=== PATIENT | female | born 1945 | race Caucasian/White ===

== ENCOUNTER 2016-12-16 20:18 | Observation (INO) | payer OTHER ==
[~2016-12-16] VITALS: Ht 162.6 cm; Wt 48.2 kg
[~2016-12-16 20:18] MED LIST: ASCA500 PO; BIOT1CAP8 PO; CHOL100010 PO; COEN150C PO; CYAN500T PO; MAGNESIUM PEG; MULT1CAP3 PO; OMEG10007 PO
[2016-12-16] MEDS ORDERED: GI COCKTAIL PO STA (20:46)
[2016-12-16] MEDS ORDERED: SUCRALFATE 1 GM TAB PO STA (20:46)
[2016-12-16] MEDS ORDERED: FAMOTIDINE 20 MG TAB PO STA (20:46)
--- NOTE | 2016-12-16 20:48 | EMERGENCY ROOM VISIT NOTE ---
History Report prepared by Farhad: Jihan Nelson Under the Supervision of: Dr. Sathya Gonzalez M.D. First contact with patient: 20:32 Chief Complaint: CARDIAC ASSESSMENT Stated Complaint: INDIGESTION,NECK ACHE,FEELING STRANGE History of Present Illness The patient is a 71 year old female who presents to the Emergency Room with complaints of intermittent indigestion since yesterday. She notes that she has noticed a burning sensation in her throat. Today, the burning extended further down towards her chest which concerned her. It does improve with laying down. 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 She denies any specific chest pain. She also complains of some achiness in the left side of her neck and occasional aches in her right arm. She has never had similar symptoms in the past. Currently, she does not have any pain. 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 She typically takes 1 baby aspirin every 2-3 days. The patient has a history of 3 separate diagnosed episodes of a-fib but is usually in normal sinus rhythm. She follows up with Dr. Sahu of cardiology. She does not have a history of smoking. There is a family history of heart disease. Source of History: patient Onset: yesterday Position: other (throat/upper chest) Quality: burning Timing: intermittent Modifying Factors (Worsening): exertion Modifying Factors (Relieving): other (laying down) Associated Symptoms: + neck pain (left sided aches) Note: Other symptoms: right arm aches Review of Systems See HPI for pertinent positives & negatives. A total of 10 systems reviewed and were otherwise negative. Past Medical & Surgical Medical Problems: (1) A-fib Family History Heart disease Social History Smoking Status: Never Smoker Marital Status: Housing Status: lives with significant other Current/Historical Medications Scheduled Ascorbic Acid (Vitamin C), 500 MG PO DAILY Biotin (Biotin), 1 MG PO DAILY Cholecalciferol (Vitamin D 1000 Unit), 1,000 INTER.UNIT PO DAILY Cyanocobalamin (Vitamin B-12), 500 MCG PO DAILY Fish Oil (Carlos-3), 1 CAP PO DAILY Magnesium Oxide (Magnesium), 250 MG PO QPM Multiple Vitamins W/ Minerals (Womens Multi), 1 TAB PO DAILY Allergies Coded Allergies: [place] (Verified Allergy, Unknown, 03/29/16) Sulfa Antibiotics (Verified Allergy, Unknown, "SULFA DRUGS": UNKNOWN, 03/29) Doxycycline (Unverified Adverse Reaction, Unknown, GI ISSUES/THROAT SWELLING, 03/29/16) Physical Exam Vital Signs Date Time Temp Pulse Resp B/P Pulse Ox O2 Delivery O2 Flow Rate FiO2 12/16/16 21:37 70 16 123/57 97 12/16/16 21:36 71 12/16/16 20:59 97 Room Air 12/16/16 20:59 Room Air 12/16/16 20:21 36.9 89 20 180/97 96 Room Air Physical Exam GENERAL: Patient is a healthy-appearing well-nourished 71 year old female HEAD: Normocephalic atraumatic EYES: Ocular movements intact pupils equal and react to light OROPHARYNX mucous membranes are moist no exudates present no erythema or edema present NECK: Supple no nuchal rigidity CHEST: Good equal expansion LUNGS: Clear and equal to auscultation CARDIAC: Normal S1 and S2 ABDOMEN: Soft nontender no guarding BACK: No CVA tenderness EXTREMITIES: No pain upon palpation normal muscle strength in all groups no clubbing cyanosis or edema NEURO: Patient is following commands is answering questions appropriately. Alert and oriented x3 Cranial Nerves 2-12 grossly intact Medical Decision & Procedures ER Provider Diagnostic Interpretation: X-ray results as stated below per my interpretation and radiologist interpretation. SINGLE VIEW CHEST CLINICAL HISTORY: Atypical chest pain. FINDINGS: An AP, portable, upright chest radiograph is compared to study dated 11/11/2009 and correlated with chest CT dated 07/17/2006. The examination is degraded by portable technique and patient rotation. The cardiomediastinal silhouette is unremarkable. Chronic interstitial thickening is similar to previous. No airspace consolidation, pleural effusion, or pneumothorax is seen. The skeletal structures are osteopenic. There is moderate S-shaped thoracolumbar scoliosis. IMPRESSION: No acute cardiopulmonary abnormality. Electronically signed by: Gary Cabral M.D. 12/16/2016 9:10 PM Dictated Date/Time: 12/16/2016 9:09 PM Laboratory Results 12/16/16 20:34 Red Blood Count 4.63, Mean Corpuscular Volume 87.3, Mean Corpuscular Hemoglobin 29.6, Mean Corpuscular Hemoglobin Concent 33.9, Mean Platelet Volume 9.6, Neutrophils (%) (Auto) 47.7, Lymphocytes (%) (Auto) 38.5, Monocytes (%) (Auto) 11.8, Eosinophils (%) (Auto) 1.5, Basophils (%) (Auto) 0.4, Neutrophils # (Auto ) 3.27, Lymphocytes # (Auto) 2.64, Monocytes # (Auto) 0.81, Eosinophils # (Auto ) 0.10, Basophils # (Auto) 0.03 12/16/16 20:34 Test 12/16/16 20:34 White Blood Count 6.86 K/uL (4.8-10.8) Red Blood Count 4.63 M/uL (4.2-5.4) Hemoglobin 13.7 g/dL (12.0-16.0) Hematocrit 40.4 % (37-47) Mean Corpuscular Volume 87.3 fL (80-100) Mean Corpuscular Hemoglobin 29.6 pg (25-34) Mean Corpuscular Hemoglobin Concent 33.9 g/dl (32-36) Platelet Count 252 K/uL (130-400) Mean Platelet Volume 9.6 fL (7.4-10.4) Neutrophils (%) (Auto) 47.7 % Lymphocytes (%) (Auto) 38.5 % Monocytes (%) (Auto) 11.8 % Eosinophils (%) (Auto) 1.5 % Basophils (%) (Auto) 0.4 % Neutrophils # (Auto) 3.27 K/uL (1.4-6.5) Lymphocytes # (Auto) 2.64 K/uL (1.2-3.4) Monocytes # (Auto) 0.81 K/uL (0.11-0.59) Eosinophils # (Auto) 0.10 K/uL (0-0.5) Basophils # (Auto) 0.03 K/uL (0-0.2) RDW Standard Deviation 45.1 fL (36.4-46.3) RDW Coefficient of Variation 14.1 % (11.5-14.5) Immature Granulocyte % (Auto) 0.1 % Immature Granulocyte # (Auto) 0.01 K/uL (0.00-0.02) Anion Gap 9.0 mmol/L (3-11) Est Creatinine Clear Calc Drug Dose 53.8 ml/min Estimated GFR () 93.6 Estimated GFR (Non- 80.8 BUN/Creatinine Ratio 21.2 (10-20) Calcium Level 9.3 mg/dl (8.5-10.1) Total Bilirubin 0.3 mg/dl (0.2-1) Direct Bilirubin < 0.1 mg/dl (0-0.2) Aspartate Amino Transf (AST/SGOT) 31 U/L (15-37) Alanine Aminotransferase (ALT/SGPT) 40 U/L (12-78) Alkaline Phosphatase 60 U/L (45-117) Total Creatine Kinase 92 U/L (26-192) Creatine Kinase MB 1.6 ng/ml (0.5-3.6) Creatine Kinase MB Ratio 1.7 (0-3.0) Troponin I < 0.015 ng/ml (0-0.045) Total Protein 7.2 gm/dl (6.4-8.2) Albumin 3.7 gm/dl (3.4-5.0) Lipase 289 U/L (73-393) Labs reviewed by ED physician. Medications Administered Medications (Trade) Dose Ordered Sig/Vidya Route Start Time Stop Time Status Last Admin Dose Admin Famotidine (Pepcid Tab) 20 mg NOW STAT PO 12/16/16 20:46 12/16/16 20:48 DC 12/16/16 21:13 20 MG Sucralfate (Carafate Tab) 1 gm NOW STAT PO 12/16/16 20:46 12/16/16 20:48 DC 12/16/16 21:13 1 GM Al Hydroxide/Mg Hydroxide (Maalox Susp) 30 ml STK-MED ONCE .ROUTE 12/16/16 21:09 12/16/16 21:11 DC 12/16/16 21:14 12 ML Lidocaine HCl (Viscous Lidocaine 2% Soln) 20 ml STK-MED ONCE .ROUTE 12/16/16 21:09 12/16/16 21:11 DC 12/16/16 21:13 12 ML ECG Indication: chest pain Rate (beats per minute): 85 Findings: no ectopy, other (slight ST depression in the inferior leads) Comparison ECG Date: no prior available ED Course 2036: Past medical records reviewed. The patient was evaluated in room B9. A complete history and physical examination was performed. 2045: Ordered Sucralfate 1 gm PO, Pepcid Tab 20 mg PO, GI Cocktail 24 ml PO. 2127: Upon reexamination the patient is resting comfortably. I discussed results and treatment plan with the patient. She verbalizes agreement and understanding. I spoke with Dr. Holloway from the [facility]. The patient will be evaluated for further management. Medical Decision Differential diagnosis: Etiologies such as cardiac ischemia, aortic dissection, pulmonary embolism, pneumonia, pneumothorax, musculoskeletal, infections, pericarditis, myocarditis , esophageal rupture, gastrointestinal, as well as others were entertained. This is a 71-year-old female who presents emergency department with exertional chest pain that has been ongoing for the past 3 days. The patient has a history of atrial fibrillation. The patient has slight depressions on her EKG and I felt based on this as well as her story that she should be admitted to the hospital. She took Pepcid Carafate and a GI cocktail with no change in her symptoms. I did discuss the case with the hospitalist service. The patient's potassium was repleted in the emergency department. Patient was in agreement with the treatment plan. Consults Time Called: [phone] Consulting Physician: Dr. Holloway - [facility] Returned Call: [phone] The patient will be evaluated for further management. Impression Primary Impression: Chest pain Scribe Attestation The scribe's documentation has been prepared under my direction and personally reviewed by me in its entirety. I confirm that the note above accurately reflects all work, treatment, procedures, and medical decision making performed by me. Departure Information Dispostion Being Evaluated By Hospitalist Referrals Mohan Gandara M.D. (PCP) Patient Instructions My [facility] Problem Qualifiers Primary Impression: Chest pain Chest pain type: precordial pain Qualified Codes: R07.2 - Precordial pain
[2016-12-16 20:55] LABS: BASO % 0.4 %; BASO ABS # 0.03 K/uL (0-0.2); COMPLETE YES; EOS % 1.5 %; HEMATOCRIT 40.4 % (37-47); IG% 0.1 %; LYMPH % 38.5 %; LYMPH ABS # 2.64 K/uL (1.2-3.4); MEAN CELL VOLUME 87.3 fL (80-100); MEAN CORPUSCULAR HEMOGLOBIN 29.6 pg (25-34); MEAN CORPUSCULAR HGB CONC 33.9 g/dl (32-36); MEAN PLATELET VOLUME 9.6 fL (7.4-10.4); MONO % 11.8 %; NEUT % 47.7 %; PLATELET COUNT 252 K/uL (130-400); RED BLOOD COUNT 4.63 M/uL (4.2-5.4); WHITE BLOOD COUNT 6.86 K/uL (4.8-10.8)
[2016-12-16] MEDS ORDERED: CHOL100027 PO (21:06)
[2016-12-16] MEDS ORDERED: MAGN250T22 PO (21:06)
[2016-12-16 21:09] LABS: ALT/SGPT 40 U/L (12-78); BLOOD UREA NITROGEN 16 mg/dl (7-18); BUN/CREATININE RATIO 21.2 (10-20); CALCIUM 9.3 mg/dl (8.5-10.1); CARBON DIOXIDE 29 mmol/L (21-32); CHLORIDE 104 mmol/L (98-107); CREATININE 0.75 mg/dl (0.60-1.20); GLUCOSE 104 mg/dl (70-99); POTASSIUM 3.4 mmol/L (3.5-5.1); SODIUM 142 mmol/L (136-145)
[2016-12-16] MEDS ORDERED: ALUMINUM/MAGNESIUM SUSP 30 ML UDC ONE (21:09)
[2016-12-16] MEDS ORDERED: LIDOCAINE HCL 2% VISC SOLN 20 ML UDC ONE (21:09)
--- NOTE | 2016-12-16 21:11 | DIAGNOSTIC IMAGING REPORT ---
SINGLE VIEW CHEST CLINICAL HISTORY: Atypical chest pain. FINDINGS: An AP, portable, upright chest radiograph is compared to study dated 11/11/2009 and correlated with chest CT dated 07/17/2006. The examination is degraded by portable technique and patient rotation. The cardiomediastinal silhouette is unremarkable. Chronic interstitial thickening is similar to previous. No airspace consolidation, pleural effusion, or pneumothorax is seen. The skeletal structures are osteopenic. There is moderate S-shaped thoracolumbar scoliosis. IMPRESSION: No acute cardiopulmonary abnormality. Electronically signed by: Gary Cabral M.D. 12/16/2016 9:10 PM Dictated Date/Time: 12/16/2016 9:09 PM
[2016-12-16 21:14] LABS: ALKALINE PHOSPHATASE 60 U/L (45-117); AST/SGOT 31 U/L (15-37); CKMB/CK RATIO 1.7 (0-3.0)
[2016-12-16] MEDS ORDERED: POTASSIUM CHLORIDE 20 MEQ/15 ML UDC PO STA (21:37)
[2016-12-16] MEDS ORDERED: ACETAMINOPHEN 325 MG TAB PO PRN (22:00)
[2016-12-16] MEDS ORDERED: ALUMINUM/MAGNESIUM/SIMETH (MAALOX MAX) 30 ML UDC PO PRN (22:00)
[2016-12-16] MEDS ORDERED: IV FLUIDS COMPLETED PRN (22:00)
[2016-12-16] MEDS ORDERED: NITROGLYCERIN 0.4 MG SL PER TAB CHARGE SL PRN (22:00)
[2016-12-16] MEDS ORDERED: MoRPHine SULFATE 2 MG/ML CARP IV PRN (22:00)
[2016-12-16] MEDS ORDERED: ONDANSETRON INJ 2 MG/ML 2 ML VIAL IV PRN (22:00)
[2016-12-16] MEDS ORDERED: MAGNESIUM HYDROXIDE SUSP 30 ML UDC PO PRN (22:00)
[2016-12-16 22:25] VITALS: BP 165/74; PULSE 84; TEMP 36.8; Ht 162.6 cm; Wt 48.2 kg
[2016-12-16] MEDS: NSS + 20MEQ KCL 1000ML 1,000 ML IV SCH (23:10)
[2016-12-16 23:47] VITALS: BP 116/68; PULSE 68; TEMP 36.4; O2SAT 93
[2016-12-17 00:01] VITALS: O2SAT 93
--- NOTE | 2016-12-17 03:21 | History and Physical ---
History & Physical Date & Time of Service: Dec 17, 2016 at 03:12 Chief Complaint: Chest Pain, Hypokalemia Primary Care Physician: Mohan Ganadra M.D. History of Present Illness Source: patient This is a 71 yo f that is presenting to us with indigestion like chest discomfort which had been intermittent since yesterday. It was not described as a pain but as indigestion and a 2/10. No known agg/ alleviating factors. She does note that for a short period of time she had left neck pain and was concerned so she came to the ED. The pain has since resolved. She denies any N&V , SOB, cough, syncope or dizziness with the pain. She has never had indigestion before. She states that she works out on a daily basis and tries to keep fit and never has chest pain with exercises. She does have a father who had an PR but her mother lived until 93 and was healthy. She has no PMHX aside from PAF which she follows with Dr Sahu. She is not on a blood thinner for this only ASA. Past Medical/Surgical History Medical Problems: (1) A-fib Status: Chronic Family History Heart disease Social History Smoking Status: Never Smoker Smokeless Tobacco Use: No Alcohol Use: none Drug Use: none Marital Status: Housing status: lives with significant other Occupational Status: retired Multi-Drug Resistant Organisms History of MDRO: No Allergies Coded Allergies: [place] (Verified Allergy, Unknown, 03/29/16) Sulfa Antibiotics (Verified Allergy, Unknown, "SULFA DRUGS": UNKNOWN, 03/29) Doxycycline (Unverified Adverse Reaction, Unknown, GI ISSUES/THROAT SWELLING, 03/29/16) Home Medications Scheduled Ascorbic Acid (Vitamin C), 500 MG PO DAILY Biotin (Biotin), 1 MG PO DAILY Cholecalciferol (Vitamin D 1000 Unit), 1,000 INTER.UNIT PO DAILY Cyanocobalamin (Vitamin B-12), 500 MCG PO DAILY Fish Oil ([place]-3), 1 CAP PO DAILY Magnesium Oxide (Magnesium), 250 MG PO QPM Multiple Vitamins W/ Minerals (Womens Multi), 1 TAB PO DAILY Review of Systems Constitutional: No fever Eyes: No worsening of vision ENT: No hearing loss Respiratory: No cough, No dyspnea at rest, No dyspnea on exertion, No shortness of breath, No sputum, No wheezing Cardiovascular: No chest pain Abdomen: No constipation, No diarrhea, No nausea, No pain, No vomiting Musculoskeletal: No joint pain, No muscle pain Neurologic: No balance problems, No numbness/tingling, No weakness Psychiatric: No anxiety, No depression symptoms Endocrine: No fatigue Integumentary: No rash Physical Exam Vital Signs Date Time Temp Pulse Resp B/P Pulse Ox O2 Delivery O2 Flow Rate FiO2 12/17/16 00:01 93 Room Air 12/16/16 23:47 36.4 68 18 116/68 93 Room Air 12/16/16 22:29 64 16 123/74 99 12/16/16 22:25 36.8 84 18 165/74 12/16/16 21:37 70 16 123/57 97 12/16/16 21:36 71 12/16/16 20:59 97 Room Air 12/16/16 20:59 Room Air 12/16/16 20:21 36.9 89 20 180/97 96 Room Air General Appearance: WD/WN, no apparent distress, + thin Head: normocephalic, atraumatic Eyes: normal inspection ENT: normal ENT inspection Neck: supple Respiratory/Chest: lungs clear, normal breath sounds, no respiratory distress, no accessory muscle use Cardiovascular: regular rate, rhythm, no murmur Abdomen/GI: normal bowel sounds, non tender, soft Back: normal inspection Extremities/Musculoskelatal: no calf tenderness, no pedal edema, normal range of motion Neurologic/Psych: no motor/sensory deficits, alert, oriented x 3 Skin: normal color, warm/dry, no rash Lymphatic: no adenopathy Diagnostics Laboratory Results Results Past 24 Hours Test 12/16/16 20:34 Range/Units White Blood Count 6.86 4.8-10.8 K/uL Red Blood Count 4.63 4.2-5.4 M/uL Hemoglobin 13.7 12.0-16.0 g/dL Hematocrit 40.4 37-47 % Mean Corpuscular Volume 87.3 80-100 fL Mean Corpuscular Hemoglobin 29.6 25-34 pg Mean Corpuscular Hemoglobin Concent 33.9 32-36 g/dl Platelet Count 252 130-400 K/uL Mean Platelet Volume 9.6 7.4-10.4 fL Neutrophils (%) (Auto) 47.7 % Lymphocytes (%) (Auto) 38.5 % Monocytes (%) (Auto) 11.8 % Eosinophils (%) (Auto) 1.5 % Basophils (%) (Auto) 0.4 % Neutrophils # (Auto) 3.27 1.4-6.5 K/uL Lymphocytes # (Auto) 2.64 1.2-3.4 K/uL Monocytes # (Auto) 0.81 0.11-0.59 K/uL Eosinophils # (Auto) 0.10 0-0.5 K/uL Basophils # (Auto) 0.03 0-0.2 K/uL RDW Standard Deviation 45.1 36.4-46.3 fL RDW Coefficient of Variation 14.1 11.5-14.5 % Immature Granulocyte % (Auto) 0.1 % Immature Granulocyte # (Auto) 0.01 0.00-0.02 K/uL Sodium Level 142 136-145 mmol/L Potassium Level 3.4 3.5-5.1 mmol/L Chloride Level 104 98-107 mmol/L Carbon Dioxide Level 29 21-32 mmol/L Anion Gap 9.0 3-11 mmol/L Blood Urea Nitrogen 16 7-18 mg/dl Creatinine 0.75 0.60-1.20 mg/dl Est Creatinine Clear Calc Drug Dose 53.8 ml/min Estimated GFR () 93.6 Estimated GFR (Non- 80.8 BUN/Creatinine Ratio 21.2 10-20 Random Glucose 104 70-99 mg/dl Calcium Level 9.3 8.5-10.1 mg/dl Total Bilirubin 0.3 0.2-1 mg/dl Direct Bilirubin < 0.1 0-0.2 mg/dl Aspartate Amino Transf (AST/SGOT) 31 15-37 U/L Alanine Aminotransferase (ALT/SGPT) 40 12-78 U/L Alkaline Phosphatase 60 45-117 U/L Total Creatine Kinase 92 26-192 U/L Creatine Kinase MB 1.6 0.5-3.6 ng/ml Creatine Kinase MB Ratio 1.7 0-3.0 Troponin I < 0.015 0-0.045 ng/ml Total Protein 7.2 6.4-8.2 gm/dl Albumin 3.7 3.4-5.0 gm/dl Lipase 289 73-393 U/L Diagnostic Radiology SINGLE VIEW CHEST CLINICAL HISTORY: Atypical chest pain. FINDINGS: An AP, portable, upright chest radiograph is compared to study dated 11/11/2009 and correlated with chest CT dated 07/17/2006. The examination is degraded by portable technique and patient rotation. The cardiomediastinal silhouette is unremarkable. Chronic interstitial thickening is similar to previous. No airspace consolidation, pleural effusion, or pneumothorax is seen. The skeletal structures are osteopenic. There is moderate S-shaped thoracolumbar scoliosis. IMPRESSION: No acute cardiopulmonary abnormality. EKG NSR, non specific T wave changes but quality is poor Impression Assessment and Plan This is a 80 yo f here for chest pain rule out without any significant PMHx Chest pain NYD - tele admission - troponin serial - EKG in am Stress echo - npoe after midnight PAF - not on any medications currently - will monitor Hypokalemia - nss with 20 kcl - recheck bmp in am DVT Prophylaxis - scd FULL CODE Level of Care Telemetry Advanced Directives Existing Living Will: No Existing Power of Ammunition And Explosives Handler: No Resuscitation Status FULL RESUSCITATION VTE Prophylaxis VTE Risk Assessment Done? Y/N: Yes Risk Level: Moderate Given or contraindicated: SCD's Social Service Consult None Apply Note Total Time: Critical Care 30 - 74 minutes Additional Copies To Mohan Gandara M.D. Assessment and Plan Attending Addendum: I have physically seen and examined this patient, have directed their medical care, have supervised the medical residents activities, and agree with the H&P as noted above, with the following changes: NONE The patient is awake, well-developed and adequately nourished, alert and oriented 3, normocephalic and atraumatic, lying in bed and in no acute distress. HEENT--PERRL, EOMI, mucous membranes and oropharynx dry. Neck--supple, no JVD or bruits, thyroid normal, trachea midline, no adenopathy. Heart--normal S1 and S2, no extra beats, no murmurs, rubs or gallops. Lungs--clear bilaterally with good air movement, no respiratory distress, no accessory muscle use. Abdomen--normal bowel sounds and soft, nontender and nondistended, no hernias or masses, no organomegaly. Extremities--no cyanosis, clubbing or edema. There are good distal pulses b/l. Dermatologic--normal skin turgor, normal color, warm and dry, no abnormal lymph nodes, no rash. Neurologic--cranial nerves II through XII grossly intact, motor and sensory examination normal. Rheumatologic--normal range of motion, nontender, muscles and joints. Psychiatric--normal affect. Assessment and Plan: Precordial Chest Pain/history of A. fib--patient will be admitted to the telemetry unit for serial cardiac enzymes, cardiac rhythm monitoring and a 2-D echocardiogram with Dopplers. Place on aspirin 81 mg by mouth daily. Nutraceutical use--continue vitamin C, biotin, vitamin D, vitamin B12, fish oil , magnesium, and women's multivitamin.
[2016-12-17 03:54] VITALS: BP 99/56; PULSE 61; TEMP 36.3; O2SAT 97
[2016-12-17 04:00] VITALS: O2SAT 97
[2016-12-17 06:20] LABS: HEMATOCRIT 36.9 % (37-47); MEAN CELL VOLUME 87.4 fL (80-100); MEAN CORPUSCULAR HEMOGLOBIN 28.7 pg (25-34); MEAN CORPUSCULAR HGB CONC 32.8 g/dl (32-36); MEAN PLATELET VOLUME 9.8 fL (7.4-10.4); PLATELET COUNT 207 K/uL (130-400); RED BLOOD COUNT 4.22 M/uL (4.2-5.4); WHITE BLOOD COUNT 3.99 K/uL (4.8-10.8)
[2016-12-17 06:50] LABS: BLOOD UREA NITROGEN 12 mg/dl (7-18); BUN/CREATININE RATIO 19.5 (10-20); CALCIUM 8.5 mg/dl (8.5-10.1); CARBON DIOXIDE 29 mmol/L (21-32); CHLORIDE 112 mmol/L (98-107); GLUCOSE 86 mg/dl (70-99); MAGNESIUM 2.1 mg/dl (1.8-2.4); POTASSIUM 4.3 mmol/L (3.5-5.1); SODIUM 145 mmol/L (136-145)
[2016-12-17 07:20] VITALS: BP 115/67; PULSE 62; TEMP 36.8; O2SAT 96
[2016-12-17] MEDS ORDERED: NON-FORMULARY MEDICATION (Biotin 1 MG) PO SCH (09:00)
[2016-12-17] MEDS ORDERED: OMEGA-3 (PURIFIED FISH OIL) 1 GM CAP PO SCH (09:00)
[2016-12-17] MEDS ORDERED: CYANOCOBALAMIN 500 MCG TAB (VIT B-12) PO SCH (09:00)
[2016-12-17] MEDS ORDERED: CEROVITE ADV FORMULA TAB PO SCH (09:00)
[2016-12-17] MEDS ORDERED: ASCORBIC ACID 500 MG TAB PO SCH (09:00)
[2016-12-17] MEDS ORDERED: CHOLECALCIFEROL 1000 INTER.UNIT TAB PO SCH (09:00)
[2016-12-17] MEDS: NSS + 20MEQ KCL 1000ML 1,000 ML IV SCH (10:50)
[2016-12-17 13:00] VITALS: BP 119/70; PULSE 60; TEMP 36.5; O2SAT 98
--- NOTE | 2016-12-17 14:13 | Discharge Instructions ---
Discharge Instructions Admission Reason for Admission: Chest Pain, Hypokalemia Discharge Discharge Diagnosis / Problem: Chest pain (non-cardiac), hypokalemia (resolved) Discharge Goals Goal(s): Improve function, Prevent Disease Progression Activity Recommendations Activity Limitations: resume your previous activity Lifting Limitations: none Exercise/Sports Limitations: none May Resume Sexual Activity: when tolerated Shower/Bathe: no limitations Driving or Machine Use: no limitations . Instructions / Follow-Up Instructions / Follow-Up Medications: no changes FOLLOW UP - if you continue to have this issue, you can schedule an appointment with Dr. Gandara, otherwise, no need for follow up Current Hospital Diet Patient's current hospital diet: AHA Diet (Heart Healthy) Discharge Diet Recommended Diet: AHA Diet (Heart Healthy) Procedures Procedures Performed: Exercise stress echocardiogram: normal Pending Studies Studies pending at discharge: no Laboratory Results Last Resulted CBC 12/17/16 06:01 Last Resulted BMP 12/17/16 06:01 Medical Emergencies . Who to Call and When: Medical Emergencies: If at any time you feel your situation is an emergency, please call 911 immediately. . Non-Emergent Contact Non-Emergency issues call your: Primary Care Provider Call Non-Emergent contact if: you have any medication questions . . "Provider Documentation" section prepared by Danny Lanza. VTE Core Measure Inpt VTE Proph given/why not?: SCD's [place] Drug Monitoring Program Search Results: no issues identified
[2016-12-17 14:19] VITALS: BP 119/70; PULSE 60; TEMP 36.5; O2SAT 98
--- NOTE | 2016-12-17 14:30 | EXERCISE STRESS ECHO ---
*NOTICE TO RECEIVING REPUBLICAN AGENCY This information is strictly Confidential and protected under [place] law. [place] law prohibits you from making any further disclosure of this information unless further disclosure is expressly permitted by the written consent of the person to whom it pertains or is authorized by law. A general authorization for the release of medical or other information is not sufficient for this purpose. Hospital accepts no responsibility if the information is made available to any other person, INCLUDING THE PATIENT. Interpretation Summary * Name: ISRAEL VELARDE Study Date: 12/17/2016 11:23 AM BP: 129/74 mmHg * Patient Location: .2T\S\S241\S\1 HR: 71 * : 1945 (M/d/yyyy) Gender: Female Height: 64 in * Age: 71 yrs Ethnicity: CA Weight: 107 lb * Ordering Physician: Wilma Campos * Performed By: Ibeth Stallings RDCS * * Reason For Study: Chest pain * BSA: 1.5 m2 * -- Conclusions -- * Normal stress echocardiogram at 7.4 METS and a peak heart rate of 94% maximum predicted. * No exercise induced chest pain. * No ECG changes * Baseline echocardiogram notes normal left ventricular systolic function and mild tricuspid regurgitation. Procedure Details * ECHOEX, CPT #[id number] * ECHO DOPPLER, CPT #[id number] * ECHO COLOR FLOW, CPT #[id number] Left Ventricle * The left ventricle is normal in size. * There is normal left ventricular wall thickness. * Ejection Fraction = 55-60%. * Left ventricular systolic function is normal. * Resting wall motion: Normal. Stress wall motion: Appropriate increase in Left ventricular systolic function and decrease in cavity size. No stress induced segmental wall motion abnormalities. Right Ventricle * The right ventricle is normal size. * The right ventricular systolic function is normal as assessed by tricuspid annular plane systolic excursion (TAPSE) (normal >1.5 cm). Atria * The left atrial size is normal. * Right atrial size is normal. * No ASD detected; PFO is not assessed. Mitral Valve * The mitral valve is normal in structure and function. * There is no mitral valve stenosis. * There is trace mitral regurgitation. Tricuspid Valve * The tricuspid valve is normal in structure and function. * There is mild tricuspid regurgitation. Aortic Valve * The aortic valve is normal in structure and function. * No hemodynamically significant valvular aortic stenosis. * There is no significant aortic regurgitation. Pulmonic Valve * The pulmonary valve is not well seen, but the Doppler examination is normal without significant regurgitation or stenosis. Great Vessels * The aortic root is not well visualized. Pericardium * The pericardium appears normal. Stress Parameters * Normal baseline electrocardiogram. * Stress ECG: No ST changes. No arrhythmias. * The stress portion of this study was personally supervised by the undersigned interpreting physician. * Rest heart rate was '71' BPM. * Rest blood pressure was '129/74' * Maximum heart rate achieved was 141 bpm. * Maximum heart rate was 94 % of maximum age-predicted heart rate. * Maximum blood pressure was '189/82' * Total exercise time was '6:17' * Maximum exercise MET level achieved was '7.40' METS * Maximum treadmill speed was '3.40' miles per hour. * Maximum treadmill elevation was '14.00'% grade. * Exercise was terminated due to 'patient request after achieving target heart rate' * Post exercise images did not acquire. Dr Sahu was watching echo monitor as echo windows were evaluated and deamed that all heart tirado squeezed as expected in a healthy heart post exercise. MMode 2D Measurements and Calculations IVSd 0.77 cm LVIDd 2.7 cm LVIDs 1.9 cm LVPWd 0.80 cm IVS/LVPW 0.97 FS 28.6 % EDV(Teich) 27.0 ml ESV(Teich) 11.6 ml EF(Teich) 57.1 % EDV(cubed) 19.7 ml ESV(cubed) 7.2 ml EF(cubed) 63.6 % LV mass(C)d 49.0 grams LV mass(C)dI 32.7 grams/m\S\2 SV(Teich) 15.4 ml SI(Teich) 10.3 ml/m\S\2 SV(cubed) 12.5 ml SI(cubed) 8.3 ml/m\S\2 Ao root diam 2.6 cm Ao root area 5.5 cm\S\2 ACS 1.6 cm LA dimension 2.4 cm asc Aorta Diam 2.6 cm LA/Ao 0.91 LVOT diam 1.7 cm LVOT area 2.2 cm\S\2 LVAd ap4 18.0 cm\S\2 LVLd ap4 7.3 cm EDV(MOD-sp4) 36.7 ml EDV(sp4-el) 37.6 ml LVAs ap4 9.8 cm\S\2 LVLs ap4 5.6 cm ESV(MOD-sp4) 13.9 ml ESV(sp4-el) 14.6 ml EF(MOD-sp4) 62.1 % EF(sp4-el) 61.3 % LVAd ap2 15.3 cm\S\2 LVLd ap2 6.7 cm EDV(MOD-sp2) 28.0 ml EDV(sp2-el) 29.5 ml LVAs ap2 8.8 cm\S\2 LVLs ap2 5.7 cm ESV(MOD-sp2) 11.7 ml ESV(sp2-el) 11.6 ml EF(MOD-sp2) 58.2 % EF(sp2-el) 60.7 % LVLd %diff -8.04 % EDV(MOD-bp) 33.1 ml LVLs %diff 2.4 % ESV(MOD-bp) 12.7 ml EF(MOD-bp) 61.8 % SV(MOD-sp4) 22.8 ml SI(MOD-sp4) 15.2 ml/m\S\2 SV(MOD-sp2) 16.3 ml SI(MOD-sp2) 10.9 ml/m\S\2 SV(MOD-bp) 20.5 ml SI(MOD-bp) 13.7 ml/m\S\2 SV(sp4-el) 23.0 ml SI(sp4-el) 15.3 ml/m\S\2 SV(sp2-el) 17.9 ml SI(sp2-el) 11.9 ml/m\S\2 Doppler Measurements and Calculations MV E max aliya 92.8 cm/sec MV A max aliya 67.6 cm/sec MV E/A 1.4 MV dec time 0.23 sec Ao V2 max 120.1 cm/sec Ao max PG 5.8 mmHg Ao max PG (full) 0.88 mmHg KWAN(V,A) 2.0 cm\S\2 KWAN(V,D) 2.0 cm\S\2 AI max aliya 358.3 cm/sec AI max PG 51.4 mmHg AI dec slope 270.7 cm/sec\S\2 AI P1/2t 387.7 msec LV V1 max PG 4.9 mmHg LV V1 max 110.6 cm/sec PA V2 max 100.4 cm/sec PA max PG 4.0 mmHg PA acc slope 502.3 cm/sec\S\2 PA acc time 0.17 sec TR max aliya 209.0 cm/sec PA pr(Accel) 2.9 mmHg
--- NOTE | 2016-12-17 14:43 | Discharge Summary ---
Discharge Summary Admission Date: Dec 16, 2016 at 21:55 Discharge Date: Dec 17, 2016 Discharge Disposition: Home Principal Diagnosis: Chest pain Problems/Secondary Diagnoses: Hypokalemia Paroxysmal atrial fibrillation Procedures: Exercise stress echocardiogram - normal Consultations: none Medication Reconciliation Continued Medications: Ascorbic Acid (Vitamin C) 500 Mg Tab 500 MG PO DAILY Biotin (Biotin) 1 Mg Cap 1 MG PO DAILY Cholecalciferol (Vitamin D 1000 Unit) 1,000 Unit Cap 1000 INTER.UNIT PO DAILY, CAP Cyanocobalamin (Vitamin B-12) 500 Mcg Tab 500 MCG PO DAILY, TAB Fish Oil ([place]-3) 1 Ea Cap 1 CAP PO DAILY, CAP Magnesium Oxide (Magnesium) 250 Mg Tab 250 MG PO QPM Multiple Vitamins W/ Minerals (Womens Multi) 1 Cap Cap 1 TAB PO DAILY Discharge Exam Patient feeling well this AM. Tolerated exercise stress echo quite well, no signs of ischemia. No chest pain currently and she reports that she is hungry. Will d/c to home with PCP follow up. Review of Systems: Constitutional: No chills, No fatigue, No fever, No problem reported, No sweats, No weakness, No weight loss Eyes: No diplopia, No discharge, No eye pain, No problem reported, No redness, No worsening of vision ENT: No dental problems, No hearing loss, No nasal symptoms, No problem reported, No sore throat, No tinnitus, No trouble swallowing, No unusual epistaxis Respiratory: No cough, No dyspnea at rest, No dyspnea on exertion, No hemoptysis, No problem reported, No shortness of breath, No sputum, No wheezing Cardiovascular: No PND, No chest pain, No claudication, No edema, No orthopnea, No palpitations, No problem reported Abdomen: No GI bleeding, No constipation, No diarrhea, No nausea, No pain, No problem reported, No vomiting Musculoskeletal: No calf pain, No joint pain, No muscle pain, No problem reported, No swelling Genitourinary - Female: No dysuria, No urinary frequency, No urinary incontinence, No urinary urgency Neurologic: No balance problems, No memory loss, No numbness/tingling, No paralysis, No problem reported, No vertigo, No weakness Psychiatric: No anhedonism, No anxiety, No depression symptoms, No insomnia , No problem reported, No substance abuse Endocrine: No excessive thirst, No excessive urination, No fatigue, No problem reported Hematologic / Lymphatic: No abnormal bleeding/bruising, No clotting problems , No night sweats, No problem reported, No swollen lymph nodes Integumentary: No bleeding, No color change, No itch, No new/changing skin lesions, No problem reported, No rash Physical Exam: General Appearance: WD/WN, no apparent distress Eyes: normal inspection, EOMI, sclerae normal ENT: normal ENT inspection, hearing grossly normal, pharynx normal Neck: supple, no adenopathy, no JVD, trachea midline Respiratory/Chest: chest non-tender, lungs clear, normal breath sounds, no respiratory distress, no accessory muscle use Cardiovascular: regular rate, rhythm, no edema, no gallop, no JVD, no murmur , normal peripheral pulses Abdomen / GI: normal bowel sounds, non tender, soft, no organomegaly Extremities: normal inspection, no calf tenderness, normal capillary refill , no pedal edema, normal range of motion, pelvis stable 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, no motor/sensory deficits , alert, normal mood/affect, normal reflexes, oriented x 3 Skin: normal color, warm/dry, no rash Lymphatic: no adenopathy Hospital Course This is a 80 yo f here for chest pain rule out without any significant PMHx Chest pain - repeat enzymes and EKG normal, no further chest pain or pressure while admitted - exercise stress echo today was normal, no chest pain while on the treadmill PAF - not on any medications currently - no episodes of afib while admitted Hypokalemia - resolved after IV fluid replacement - continue supplements, can check repeat potassium as outpatient DVT Prophylaxis - scd FULL CODE Total Time Spent: Less than 30 minutes This includes examination of the patient, discharge planning, medication reconciliation, and communication with other providers. Discharge Instructions Please refer to the electronic Patient Visit Report (Discharge Instructions) for additional information. Follow-Up Dr. Gandara in 1-2 weeks Additional Copies To Mohan Gandara M.D.
[2016-12-17] MEDS ORDERED: MAGNESIUM OXIDE 400 MG TAB PO SCH (21:00)
== END 2016-12-17 14:54 | disposition home or self-care (01) ==
LOC: ENRESERVTM → ENRESERVDT → C.EDB 20:20 → C.2T 21:55
PROVIDERS: ADMIT Hospitalist; ATTEND Internal Medicine
DX: R07.89 Other chest pain (principal); E87.6 Hypokalemia; I48.0 Paroxysmal atrial fibrillation; M41.9 Scoliosis, unspecified; Z82.49 Family history of ischemic heart disease and other diseases of the circulatory system

== ENCOUNTER → 2017-12-22 | Outpatient (CLI) | payer OTHER ==
[~2017-12-22] MED LIST changes: -CHOL100010 PO; +CHOL100027 PO; -COEN150C PO; +MAGN250T22 PO; -MAGNESIUM PEG
== END | disposition home or self-care (01) ==
LOC: C.LABSPEC 13:13
PROVIDERS: ATTEND Obstetrics & Gynecology
DX: N89.9 Noninflammatory disorder of vagina, unspecified (principal)

== ENCOUNTER → 2018-01-20 | Outpatient (CLI) | payer OTHER | END | disposition home or self-care (01) | LOC: C.LABSPEC 12:38 | PROVIDERS: ATTEND Physician Assistant | DX: N89.8 Other specified noninflammatory disorders of vagina (principal); R10.2 Pelvic and perineal pain ==